=== PATIENT | male | born 1995 | race Caucasian/White ===

== ENCOUNTER 2017-02-10 09:14 | Emergency (ER) | payer SELFPAY ==
[~2017-02-10] VITALS: Ht 180.3 cm; Wt 70.0 kg
[~2017-02-10 09:14] MED LIST: AMOXICILLIN500 MG PO; BOOSTRIX IM; LAMICTAL100 M1 OR; MOTRIN400 MG OR; MOTRIN600 MG OR; MUPIROCIN2 % EX; NO MEDS; RANITIDINE150 M1 OR; RANITIDINE150 M1 PO; RISPERDAL0.5 MG PO; ROCEPHIN 1 GM1 GM IM; SMZ-TMP DS1 TAB PO; TRAZODONE150 MG PO; TRILEPTAL300 MG PO; ULTRAM50 M1 PO; lithium
[2017-02-10 11:38] VITALS: BP 121/81
== END 2017-02-10 11:55 | disposition home or self-care (01) | DRG 918 ==
LOC: ED 09:14
DX: T53.5X1A Toxic effect of chlorofluorocarbons, accidental (unintentional), initial encounter (principal); R06.02 Shortness of breath; R07.9 Chest pain, unspecified; R94.31 Abnormal electrocardiogram [ECG] [EKG]; Y92.009 Unspecified place in unspecified non-institutional (private) residence as the place of occurrence of the external cause

== ENCOUNTER 2019-01-29 13:01 | Emergency (ER) | payer SELFPAY ==
[~2019-01-29] VITALS: Ht 180.3 cm; Wt 70.0 kg
[2019-01-29 13:23] LABS: HEMATOCRIT 44.6 % (39.0-50.0); HEMOGLOBIN 15.9 g/dl (14.0-18.0); IMMATURE GRANULOCYTES 0.3 % (0.0-5.0); MEAN CORPUSCULAR HGB 31.7 pG CALC (26.0-32.0); MEAN CORPUSCULAR HGB CONC 35.7 g/L CALC (32.0-36.0); NEUT# 4.47 thou/uL (1.82-7.42); RED BLOOD COUNT 5.01 mill/uL (4.70-6.10); RED CELL DISTRI WIDTH 13.3 % (11.5-15.5)
[2019-01-29 13:54] LABS: ANION GAP 22 (6-22 (CALC)); BUN 5 mg/dL (9-20); BUN/CREATININE RATIO 7 (12-20 (CALC)); CARBON DIOXIDE 27 mmol/l (22-30); CHLORIDE 90 mmol/l (95-108); CREATININE 0.7 mg/dL (0.7-1.3); GFR > 60 ML/MIN (>=60 (CALC)); GFR FOR AFR.AMER. > 60 ML/MIN (>=60 (CALC)); SODIUM 136 mmol/l (137-146)
[2019-01-29 13:55] LABS: POTASSIUM 3.3 mmol/l (3.5-5.1)
[2019-01-29] MEDS ORDERED: EPIPEN 2-P0.3 MG/0.3 IM (14:01)
[2019-01-29] MEDS ORDERED: PREDNISONE50 MG PO (14:01)
[2019-01-29 14:30] VITALS: BP 128/62
[2019-01-29] MEDS ORDERED: BUPROPION HCL150 M1 PO (15:14)
== END 2019-01-29 14:30 | disposition home or self-care (01) | DRG 918 ==
LOC: ED 13:01
PROVIDERS: Family Medicine
DX: T63.441A Toxic effect of venom of bees, accidental (unintentional), initial encounter (principal); T78.2XXA Anaphylactic shock, unspecified, initial encounter; X58.XXXA Exposure to other specified factors, initial encounter; F17.200 Nicotine dependence, unspecified, uncomplicated

== ENCOUNTER 2019-07-07 | Emergency (ER) | payer SELFPAY ==
[~2019-07-07] MED LIST changes: +BUPROPION HCL150 M1 PO; +EPIPEN 2-P0.3 MG/0.3 IM; +PREDNISONE50 MG PO
[2019-07-07 15:59] LABS: HEMOGLOBIN 14.5 g/dl (14.0-18.0); IMMATURE GRANULOCYTES 0.3 % (0.0-5.0); MEAN CORPUSCULAR HGB 32.7 pG CALC (26.0-32.0); MEAN CORPUSCULAR HGB CONC 34.5 g/L CALC (32.0-36.0); NEUT# 5.38 thou/uL (1.82-7.42); RED BLOOD COUNT 4.44 mill/uL (4.70-6.10); RED CELL DISTRI WIDTH 14.5 % (11.5-15.5)
[2019-07-07 16:20] LABS: ALBUMIN 4.5 g/dL (3.2-5.0); ALKALINE PHOSPHATASE 106 u/l (38-126); BILIRUBIN, TOTAL 0.7 mg/dL (0.0-1.4); BUN 8 mg/dL (9-20); BUN/CREATININE RATIO 11 (12-20 (CALC)); CARBON DIOXIDE 24 mmol/l (22-30); CHLORIDE 100 mmol/l (95-108); CREATININE 0.7 mg/dL (0.7-1.3); ETHYL ALCOHOL 0 mg/dl (0-30); GFR > 60 ML/MIN (>=60 (CALC)); GFR FOR AFR.AMER. > 60 ML/MIN (>=60 (CALC)); SODIUM 137 mmol/l (137-146); TOTAL PROTEIN 7.4 g/dL (6.3-8.2)
[2019-07-07 16:25] LABS: MEAN CELL VOLUME 94.6 fL CALC (80.0-100.0)
[2019-07-07 16:28] LABS: ANION GAP 18 (6-22 (CALC)); SGOT/AST 63 u/l (17-59)
[2019-07-07 16:32] LABS: POTASSIUM 5.3 mmol/l (3.5-5.1)
[2019-07-07 17:35] LABS: URINE BILIRUBIN - DIPSTICK NEGATIVE (NEGATIVE); URINE BLOOD DIPSTICK NEGATIVE (NEGATIVE); URINE COLOR YELLOW; URINE GLUCOSE - DIPSTICK NEGATIVE (NEGATIVE); URINE KETONE NEGATIVE (NEGATIVE); URINE LEUK ESTERASE NEGATIVE (NEGATIVE); URINE NITRITE - DIPSTICK NEGATIVE (Negative); URINE PH 7.5 (4.5-8.0); URINE PROTEIN - DIPSTICK NEGATIVE (NEG-TRACE)
[2019-07-07 17:40] LABS: BARBITURATES NEGATIVE (NEGATIVE); COCAINE NEGATIVE (NEGATIVE); METHADONE NEGATIVE (NEGATIVE); OXCYCODONE NEGATIVE (NEGATIVE); TETRAHYDROCANNABIONOL NEGATIVE (NEGATIVE); TRICYLIC ANTIDEPRESSANTS NEGATIVE (NEGATIVE)
== END 2019-07-07 17:54 | disposition home or self-care (01) | DRG 101 ==
PROVIDERS: Family Medicine
DX: R56.9 Unspecified convulsions (principal); F17.210 Nicotine dependence, cigarettes, uncomplicated

== ENCOUNTER 2019-08-27 | Emergency (ER) | payer SELFPAY ==
[2019-08-27 08:27] LABS: URINE BILIRUBIN - DIPSTICK NEGATIVE (NEGATIVE); URINE BLOOD DIPSTICK MODERATE (NEGATIVE); URINE COLOR YELLOW; URINE GLUCOSE - DIPSTICK NEGATIVE (NEGATIVE); URINE KETONE >=80 mg/dL (NEGATIVE); URINE LEUK ESTERASE NEGATIVE (NEGATIVE); URINE NITRITE - DIPSTICK NEGATIVE (Negative); URINE PH 5.5 (4.5-8.0); URINE PROTEIN - DIPSTICK 30 mg/dL (NEG-TRACE); URINE SPECIFIC GRAVITY >=1.030; URINE UROBILINOGEN - DIPSTICK 0.2 E.U./dL (0.2)
[2019-08-27 08:32] LABS: BARBITURATES NEGATIVE (NEGATIVE); COCAINE NEGATIVE (NEGATIVE); METHADONE NEGATIVE (NEGATIVE); OXCYCODONE NEGATIVE (NEGATIVE); TETRAHYDROCANNABIONOL NEGATIVE (NEGATIVE); TRICYLIC ANTIDEPRESSANTS NEGATIVE (NEGATIVE)
[2019-08-27 08:39] LABS: ALKALINE PHOSPHATASE 94 u/l (38-126); BUN 13 mg/dL (9-20); BUN/CREATININE RATIO 20 (12-20 (CALC)); CREATININE 0.7 mg/dL (0.7-1.3); GFR > 60 ML/MIN (>=60 (CALC)); GFR FOR AFR.AMER. > 60 ML/MIN (>=60 (CALC)); LIPASE 53 u/l (23-300); SGOT/AST 108 u/l (17-59)
[2019-08-27 08:44] LABS: PROTHROMBIN TIME 10.7 SECONDS (9.0-12.5)
[2019-08-27 08:55] LABS: URINE BACTERIA FEW hpf; URINE COARSE GRANULAR CAST FEW lpf; URINE HYALINE CAST FEW lpf (NONE-RARE); URINE MUCUS MODERATE hpf (NONE-FEW); URINE RBC 25-50 RBC/hpf (0-5); URINE SQUAMOUS EPITHELIAL CELL FEW EPI/hpf (0-FEW)
[2019-08-27 08:58] LABS: BILIRUBIN, TOTAL 1.5 mg/dL (0.0-1.4); CARBON DIOXIDE 33 mmol/l (22-30)
[2019-08-27 08:59] LABS: ANION GAP 27 (6-22 (CALC)); CHLORIDE < 50 mmol/l (95-108); ETHYL ALCOHOL < 10 mg/dl (0-30); POTASSIUM 2.5 mmol/l (3.5-5.1); SODIUM 107 mmol/l (137-146)
[2019-08-27 09:11] LABS: HEMATOCRIT 40.7 % (39.0-50.0); IMMATURE GRANULOCYTES 1.1 % (0.0-5.0); MEAN CORPUSCULAR HGB 33.5 pG CALC (26.0-32.0); MEAN CORPUSCULAR HGB CONC 39.3 g/dL CAL (32.0-36.0); NEUT# 16.63 thou/uL (1.82-7.42); RED BLOOD COUNT 4.78 mill/uL (4.70-6.10); RED CELL DISTRI WIDTH 11.3 % (11.5-15.5)
[2019-08-27 09:12] LABS: MEAN CELL VOLUME 85.1 fL CALC (80.0-100.0)
--- NOTE | 2019-08-27 09:41 | NUR ---
PT TO ER VIA EMS UNRESPONSIVE ORALLY INTUBATED W/ 8.0 ET TUBE ON 1ST ATTEMPT W/O DIFFICULTY SECURED AT 22CM BETH CONFIRMED VIA CO2 DETECTOR AUSCULTATION AND CHEST FILM TO CT SCAN VIA BVM ON 100% FIO2 W/O INCIDENT PLACED ON VENT SETTINGS ON FLOW SHEET ALARMS ON AND AUDIBLE
--- NOTE | 2019-08-29 07:55 | NUR ---
Covid results (Negative) faxed to [facility] [phone]
--- NOTE | 2019-08-30 07:55 | NUR ---
PRELIMINARY BLOOD CX SHOW 1 OF 2 BOTTLE WITH GRAM POSITIVE COCCI. FAXED RESULTS TO PTS NURSE LAURA AT [facility] [phone]
--- NOTE | 2019-08-31 08:11 | NUR ---
FAXED FINAL BLOOD CULTURES TO [facility] ICU FAX #[phone]. SPOKE WITH NURSE RADHA
== END 2019-08-27 12:15 | disposition short-term general hospital (02) | DRG 871 ==
PROVIDERS: Family Medicine
PROC: 0T9B70Z Drainage of Bladder with Drainage Device, Via Natural or Artificial Opening (ICD-10-PCS; principal; 2019-08-27)
PROC: 0BH17EZ Insertion of Endotracheal Airway into Trachea, Via Natural or Artificial Opening (ICD-10-PCS; 2019-08-27)
PROC: 05HN33Z Insertion of Infusion Device into Left Internal Jugular Vein, Percutaneous Approach (ICD-10-PCS; 2019-08-27)
DX: A41.9 Sepsis, unspecified organism (principal); J18.9 Pneumonia, unspecified organism; I21.4 Non-ST elevation (NSTEMI) myocardial infarction; E87.1 Hypo-osmolality and hyponatremia; R65.20 Severe sepsis without septic shock; E87.8 Other disorders of electrolyte and fluid balance, not elsewhere classified; E87.6 Hypokalemia; S10.91XA Abrasion of unspecified part of neck, initial encounter; S30.810A Abrasion of lower back and pelvis, initial encounter; F17.200 Nicotine dependence, unspecified, uncomplicated; X58.XXXA Exposure to other specified factors, initial encounter; Z20.828 Contact with and (suspected) exposure to other viral communicable diseases
CPT/HCPCS: J0692; J2354; J3475; Q9967; S0164

== ENCOUNTER 2020-05-03 18:18 | Emergency (ER) | payer SELFPAY ==
[~2020-05-03] VITALS: Ht 180.3 cm; Wt 100.0 kg
[2020-05-03] MEDS ORDERED: BACTRIM DS1 TAB PO (19:31)
[2020-05-03 19:43] VITALS: BP 128/76
== END 2020-05-03 19:43 | disposition home or self-care (01) | DRG 603 ==
LOC: ED 18:18
PROC: 0H9HXZZ Drainage of Right Upper Leg Skin, External Approach (ICD-10-PCS; principal; 2020-05-03)
DX: L02.415 Cutaneous abscess of right lower limb (principal); F31.9 Bipolar disorder, unspecified; F17.200 Nicotine dependence, unspecified, uncomplicated

== ENCOUNTER 2020-05-05 10:27 | Emergency (ER) | payer SELFPAY ==
[~2020-05-05] VITALS: Ht 180.3 cm; Wt 70.0 kg
[~2020-05-05 10:27] MED LIST changes: +BACTRIM DS1 TAB PO
[2020-05-05 11:00] VITALS: BP 129/83
== END 2020-05-05 11:00 | disposition home or self-care (01) | DRG 951 ==
LOC: ED 10:27
DX: Z48.01 Encounter for change or removal of surgical wound dressing (principal); F17.200 Nicotine dependence, unspecified, uncomplicated

== ENCOUNTER 2020-05-13 14:50 | Emergency (ER) | payer SELFPAY ==
[~2020-05-13] VITALS: Ht 175.3 cm; Wt 90.0 kg
[2020-05-13 15:28] LABS: URINE GLUCOSE - DIPSTICK NEGATIVE (NEGATIVE); URINE KETONE TRACE mg/dL (NEGATIVE); URINE LEUK ESTERASE NEGATIVE (NEGATIVE); URINE PROTEIN - DIPSTICK 30 mg/dL (NEG-TRACE); URINE SPECIFIC GRAVITY 1.015
[2020-05-13 15:29] LABS: HEMOGLOBIN 16.5 g/dl (14.0-18.0); IMMATURE GRANULOCYTES 0.6 % (0.0-5.0); MEAN CORPUSCULAR HGB 33.1 pG CALC (26.0-32.0); MEAN CORPUSCULAR HGB CONC 34.6 g/dL CAL (32.0-36.0); NEUT# 7.66 thou/uL (1.82-7.42); RED BLOOD COUNT 4.98 mill/uL (4.70-6.10); RED CELL DISTRI WIDTH 12.8 % (11.5-15.5)
[2020-05-13 15:45] LABS: ALKALINE PHOSPHATASE 106 u/l (38-126); BUN 11 mg/dL (9-20); BUN/CREATININE RATIO 9 (12-20 (CALC)); CREATININE 1.3 mg/dL (0.7-1.3); ETHYL ALCOHOL 0 mg/dl (0-30); GFR > 60 ML/MIN (>=60 (CALC)); GFR FOR AFR.AMER. > 60 ML/MIN (>=60 (CALC)); LIPASE 71 u/l (23-300); SGOT/AST 117 u/l (17-59); TOTAL PROTEIN 8.5 g/dL (6.3-8.2)
[2020-05-13 15:47] LABS: ANION GAP 19 (6-22 (CALC)); BILIRUBIN, TOTAL 0.6 mg/dL (0.0-1.4); CARBON DIOXIDE 26 mmol/l (22-30); CHLORIDE 91 mmol/l (95-108); POTASSIUM 4.3 mmol/l (3.5-5.1); SODIUM 132 mmol/l (137-146)
[2020-05-13 15:48] LABS: URINE BILIRUBIN - DIPSTICK NEGATIVE (NEGATIVE)
[2020-05-13 15:49] LABS: URINE BACTERIA RARE hpf; URINE BLOOD DIPSTICK NEGATIVE (NEGATIVE); URINE EPITHELIAL CELLS RARE EPI/hpf (0-FEW); URINE WBC 0-2 WBC/hpf (0-5)
[2020-05-13 15:50] LABS: URINE COLOR ORANGE
[2020-05-13 15:51] LABS: URINE NITRITE - DIPSTICK POSITIVE (Negative)
[2020-05-13 16:02] LABS: HEMATOCRIT 47.7 % (39.0-50.0); MEAN CELL VOLUME 95.8 fL CALC (80.0-100.0)
[2020-05-13 18:45] VITALS: BP 118/79
== END 2020-05-13 18:45 | disposition left against medical advice (07) | DRG 641 ==
LOC: ED 14:50
DX: E87.1 Hypo-osmolality and hyponatremia (principal); F10.239 Alcohol dependence with withdrawal, unspecified; E87.8 Other disorders of electrolyte and fluid balance, not elsewhere classified; E87.2 Acidosis; F31.9 Bipolar disorder, unspecified; F17.210 Nicotine dependence, cigarettes, uncomplicated; Z91.19 Patient's noncompliance with other medical treatment and regimen; Z20.828 Contact with and (suspected) exposure to other viral communicable diseases
CPT/HCPCS: J0131

== ENCOUNTER 2020-11-04 13:14 | Emergency (ER) | payer MEDICARE, MEDICAID ==
[~2020-11-04] VITALS: Ht 175.3 cm; Wt 73.0 kg
[2020-11-04 14:24] LABS: IMMATURE GRANULOCYTES 0.5 % (0.0-5.0); MEAN CELL VOLUME 94.6 fL CALC (80.0-100.0); MEAN CORPUSCULAR HGB 33.3 pG CALC (26.0-32.0); MEAN CORPUSCULAR HGB CONC 35.2 g/dL CAL (32.0-36.0); NEUT# 5.92 thou/uL (1.82-7.42); RED BLOOD COUNT 4.26 mill/uL (4.70-6.10); RED CELL DISTRI WIDTH 12.7 % (11.5-15.5)
[2020-11-04 14:29] LABS: HEMATOCRIT 40.3 % (39.0-50.0); HEMOGLOBIN 14.2 g/dl (14.0-18.0)
[2020-11-04 14:36] LABS: ALBUMIN 4.5 g/dL (3.2-5.0); ALKALINE PHOSPHATASE 73 u/l (38-126); ANION GAP 17 (6-22 (CALC)); BILIRUBIN, TOTAL 0.3 mg/dL (0.0-1.4); BUN 4 mg/dL (9-20); BUN/CREATININE RATIO 5 (12-20 (CALC)); CARBON DIOXIDE 25 mmol/l (22-30); CHLORIDE 90 mmol/l (95-108); CREATININE 0.8 mg/dL (0.7-1.3); ETHYL ALCOHOL 187 mg/dl (0-30); GFR > 60 ML/MIN (>=60 (CALC)); GFR FOR AFR.AMER. > 60 ML/MIN (>=60 (CALC)); SGOT/AST 39 u/l (17-59); SODIUM 127 mmol/l (137-146); TOTAL PROTEIN 7.8 g/dL (6.3-8.2)
[2020-11-04 15:03] LABS: URINE BILIRUBIN - DIPSTICK NEGATIVE (NEGATIVE); URINE BLOOD DIPSTICK NEGATIVE (NEGATIVE); URINE COLOR YELLOW; URINE GLUCOSE - DIPSTICK NEGATIVE (NEGATIVE); URINE KETONE NEGATIVE (NEGATIVE); URINE LEUK ESTERASE NEGATIVE (NEGATIVE); URINE NITRITE - DIPSTICK NEGATIVE (Negative); URINE PROTEIN - DIPSTICK NEGATIVE (NEG-TRACE)
[2020-11-04 15:37] VITALS: BP 112/58
== END 2020-11-04 15:36 | disposition short-term general hospital (02) ==
LOC: ED 13:14
PROVIDERS: Family Medicine
DX: F31.9 Bipolar disorder, unspecified (principal); F91.3 Oppositional defiant disorder; F90.9 Attention-deficit hyperactivity disorder, unspecified type; F10.10 Alcohol abuse, uncomplicated; F19.10 Other psychoactive substance abuse, uncomplicated; T50.906A Underdosing of unspecified drugs, medicaments and biological substances, initial encounter; F17.210 Nicotine dependence, cigarettes, uncomplicated; Y90.6 Blood alcohol level of 120-199 mg/100 ml; Z91.128 Patient's intentional underdosing of medication regimen for other reason
CPT/HCPCS: J2060

== ENCOUNTER 2020-11-30 10:18 | Emergency (ER) | payer MEDICARE, MEDICAID ==
[~2020-11-30] VITALS: Ht 175.3 cm; Wt 84.6 kg
[2020-11-30] MEDS ORDERED: DEPAKOTE500 MG PO (10:37)
[2020-11-30 12:20] VITALS: BP 124/60
[2020-11-30] MEDS ORDERED: BACTRIM DS1 TAB PO (12:23)
[2020-11-30] MEDS ORDERED: KEFLEX500 MG PO (12:23)
[2020-11-30] MEDS ORDERED: LORTAB 1010 MG PO (12:23)
== END 2020-11-30 12:34 | disposition home or self-care (01) ==
LOC: ED 10:18
PROC: 0H98XZZ Drainage of Buttock Skin, External Approach (ICD-10-PCS; principal; 2020-11-30)
DX: L02.31 Cutaneous abscess of buttock (principal); F31.9 Bipolar disorder, unspecified; F17.210 Nicotine dependence, cigarettes, uncomplicated; B95.7 Other staphylococcus as the cause of diseases classified elsewhere

== ENCOUNTER 2020-12-01 13:56 | Emergency (ER) | payer MEDICARE, MEDICAID ==
[~2020-12-01] VITALS: Ht 175.3 cm; Wt 83.6 kg
[~2020-12-01 13:56] MED LIST changes: +DEPAKOTE500 MG PO; +KEFLEX500 MG PO; +LORTAB 1010 MG PO
[2020-12-01 14:28] VITALS: BP 109/57
== END 2020-12-01 14:35 | disposition home or self-care (01) ==
LOC: ED 13:56
DX: Z48.01 Encounter for change or removal of surgical wound dressing (principal); F31.9 Bipolar disorder, unspecified; F17.200 Nicotine dependence, unspecified, uncomplicated

== ENCOUNTER 2020-12-29 10:26 | Emergency (ER) | payer MEDICARE, OTHER ==
[2020-12-29 12:35] LABS: URINE BILIRUBIN - DIPSTICK NEGATIVE (NEGATIVE); URINE BLOOD DIPSTICK NEGATIVE (NEGATIVE); URINE COLOR YELLOW; URINE GLUCOSE - DIPSTICK NEGATIVE (NEGATIVE); URINE KETONE NEGATIVE (NEGATIVE); URINE LEUK ESTERASE NEGATIVE (NEGATIVE); URINE PROTEIN - DIPSTICK NEGATIVE (NEG-TRACE); URINE UROBILINOGEN - DIPSTICK 0.2 E.U./dL (0.2)
[2020-12-29 12:36] LABS: URINE NITRITE - DIPSTICK NEGATIVE (Negative)
[2020-12-29 13:44] LABS: HEMATOCRIT 41.5 % (39.0-50.0); HEMOGLOBIN 14.5 g/dl (14.0-18.0); IMMATURE GRANULOCYTES 0.5 % (0.0-5.0); MEAN CELL VOLUME 96.1 fL CALC (80.0-100.0); MEAN CORPUSCULAR HGB 33.6 pG CALC (26.0-32.0); MEAN CORPUSCULAR HGB CONC 34.9 g/dL CAL (32.0-36.0); NEUT# 4.28 thou/uL (1.82-7.42); RED BLOOD COUNT 4.32 mill/uL (4.70-6.10); RED CELL DISTRI WIDTH 12.3 % (11.5-15.5)
[2020-12-29] MEDS ORDERED: TRILEPTAL300 MG PO (13:54)
[2020-12-29] MEDS ORDERED: VENLAFAXINE150 M1 PO (13:54)
[2020-12-29] MEDS ORDERED: RISPERDAL1 MG PO (13:54)
[2020-12-29] MEDS ORDERED: DIVALPROEX SOD500 MG PO (13:55)
[2020-12-29] MEDS ORDERED: CLONAZEPAM1 M1 PO (13:55)
[2020-12-29 14:14] LABS: ALBUMIN 4.6 g/dL (3.2-5.0); ALKALINE PHOSPHATASE 84 u/l (38-126); ANION GAP 18 (6-22 (CALC)); BILIRUBIN, TOTAL 0.3 mg/dL (0.0-1.4); BUN 5 mg/dL (9-20); BUN/CREATININE RATIO 6 (12-20 (CALC)); CARBON DIOXIDE 25 mmol/l (22-30); CHLORIDE 90 mmol/l (95-108); CREATININE 0.8 mg/dL (0.7-1.3); ETHYL ALCOHOL 150 mg/dl (0-30); GFR > 60 ML/MIN (>=60 (CALC)); GFR FOR AFR.AMER. > 60 ML/MIN (>=60 (CALC)); POTASSIUM 3.8 mmol/l (3.5-5.1); SGOT/AST 32 u/l (17-59); SODIUM 129 mmol/l (137-146); TOTAL PROTEIN 7.9 g/dL (6.3-8.2)
[2020-12-29 16:18] VITALS: BP 126/72
== END 2020-12-29 16:18 | disposition designated cancer center or children's hospital (05) ==
LOC: ED 10:26
DX: R45.851 Suicidal ideations (principal); R45.850 Homicidal ideations; F10.129 Alcohol abuse with intoxication, unspecified; F31.9 Bipolar disorder, unspecified; F17.200 Nicotine dependence, unspecified, uncomplicated; Z20.822 Contact with and (suspected) exposure to COVID-19

== ENCOUNTER 2021-01-31 21:09 | Emergency (ER) | payer MEDICARE, OTHER ==
[~2021-01-31] VITALS: Ht 175.3 cm; Wt 83.0 kg
[~2021-01-31 21:09] MED LIST changes: +CLONAZEPAM1 M1 PO; +DIVALPROEX SOD500 MG PO; +RISPERDAL1 MG PO; +VENLAFAXINE150 M1 PO
[2021-01-31 21:36] LABS: URINE BILIRUBIN - DIPSTICK NEGATIVE (NEGATIVE); URINE BLOOD DIPSTICK NEGATIVE (NEGATIVE); URINE COLOR YELLOW; URINE GLUCOSE - DIPSTICK NEGATIVE (NEGATIVE); URINE KETONE NEGATIVE (NEGATIVE); URINE LEUK ESTERASE NEGATIVE (NEGATIVE); URINE PH 6.5 (4.5-8.0); URINE PROTEIN - DIPSTICK NEGATIVE (NEG-TRACE); URINE SPECIFIC GRAVITY <=1.005; URINE UROBILINOGEN - DIPSTICK 0.2 E.U./dL (0.2)
[2021-01-31 21:37] LABS: URINE NITRITE - DIPSTICK NEGATIVE (Negative)
[2021-01-31 22:04] LABS: HEMATOCRIT 40.5 % (39.0-50.0); HEMOGLOBIN 13.7 g/dl (14.0-18.0); IMMATURE GRANULOCYTES 0.4 % (0.0-5.0); MEAN CORPUSCULAR HGB 34.2 pG CALC (26.0-32.0); MEAN CORPUSCULAR HGB CONC 33.8 g/dL CAL (32.0-36.0); NEUT# 4.53 thou/uL (1.82-7.42); RED BLOOD COUNT 4.01 mill/uL (4.70-6.10); RED CELL DISTRI WIDTH 13.1 % (11.5-15.5)
[2021-01-31 22:17] LABS: ALBUMIN 4.6 g/dL (3.2-5.0); ALKALINE PHOSPHATASE 91 u/l (38-126); BILIRUBIN, TOTAL 0.2 mg/dL (0.0-1.4); BUN 9 mg/dL (9-20); BUN/CREATININE RATIO 11 (12-20 (CALC)); CARBON DIOXIDE 25 mmol/l (22-30); CREATININE 0.9 mg/dL (0.7-1.3); ETHYL ALCOHOL 259 mg/dl (0-30); GFR > 60 ML/MIN (>=60 (CALC)); GFR FOR AFR.AMER. > 60 ML/MIN (>=60 (CALC)); POTASSIUM 3.8 mmol/l (3.5-5.1); SGOT/AST 37 u/l (17-59); TOTAL PROTEIN 7.7 g/dL (6.3-8.2)
[2021-01-31 22:19] LABS: ANION GAP 16 (6-22 (CALC)); CHLORIDE 103 mmol/l (95-108); SODIUM 140 mmol/l (137-146)
[2021-01-31 22:29] LABS: MYOGLOBIN 132 ng/mL (0 - 121)
[2021-02-01 08:50] VITALS: BP 112/69
== END 2021-02-01 08:50 ==
LOC: ED 21:09
PROVIDERS: Emergency Medicine
DX: F31.9 Bipolar disorder, unspecified (principal); F20.9 Schizophrenia, unspecified; E87.2 Acidosis; F41.9 Anxiety disorder, unspecified; F17.200 Nicotine dependence, unspecified, uncomplicated; F10.129 Alcohol abuse with intoxication, unspecified; Y90.8 Blood alcohol level of 240 mg/100 ml or more; Z78.1 Physical restraint status; Z20.822 Contact with and (suspected) exposure to COVID-19
CPT/HCPCS: S0166

== ENCOUNTER 2021-06-23 11:29 | Emergency (ER) | payer MEDICARE ==
[~2021-06-23] VITALS: Ht 175.3 cm; Wt 81.6 kg
[2021-06-23 14:58] VITALS: BP 125/78
== END 2021-06-23 14:45 | disposition home or self-care (01) ==
LOC: ED 11:29
DX: M25.571 Pain in right ankle and joints of right foot (principal); M25.562 Pain in left knee; F31.9 Bipolar disorder, unspecified; F41.9 Anxiety disorder, unspecified; G40.909 Epilepsy, unspecified, not intractable, without status epilepticus; F17.210 Nicotine dependence, cigarettes, uncomplicated; W01.0XXA Fall on same level from slipping, tripping and stumbling without subsequent striking against object, initial encounter; Y92.009 Unspecified place in unspecified non-institutional (private) residence as the place of occurrence of the external cause

== ENCOUNTER 2023-11-06 16:50 | Emergency (ER) | payer MEDICARE, MEDICAID ==
[~2023-11-06] VITALS: Ht 175.3 cm; Wt 82.7 kg
[~2023-11-06 16:50] MED LIST changes: +NAPROXEN500 MG PO
[2023-11-06 16:53] VITALS: BP 109/65
[2023-11-06 17:00] VITALS: BP 104/64
[2023-11-06] MEDS ORDERED: TRAZODONE HYDR150 MG (17:04)
[2023-11-06] MEDS ORDERED: ABILIFY10 MG PO (17:06)
[2023-11-06 17:15] VITALS: BP 106/61
[2023-11-06 17:30] VITALS: BP 107/68
[2023-11-06 17:40] VITALS: BP 107/68
== END 2023-11-06 17:46 | disposition home or self-care (01) ==
LOC: ED 16:50
DX: T63.441A Toxic effect of venom of bees, accidental (unintentional), initial encounter (principal); R22.0 Localized swelling, mass and lump, head; M79.89 Other specified soft tissue disorders; F31.9 Bipolar disorder, unspecified; G40.909 Epilepsy, unspecified, not intractable, without status epilepticus; F10.10 Alcohol abuse, uncomplicated; F19.10 Other psychoactive substance abuse, uncomplicated; F20.9 Schizophrenia, unspecified; F17.200 Nicotine dependence, unspecified, uncomplicated